=== PATIENT | male | born 1945 | race Caucasian/White ===

== ENCOUNTER 2018-02-02 16:33 | Emergency (ER) | payer MEDICARE, OTHER ==
[~2018-02-02] VITALS: Ht 175.3 cm; Wt 95.3 kg
[~2018-02-02 16:33] MED LIST: ALLOPURINOL100 MG PO; ALLOPURINOL300 MG PO; ATORVASTATIN CA20 MG PO; BUMETANIDE2 MG PO; BUPROPION XL300 MG PO; CLONAZEPAM0.25 MG PO; COLCRYS0.6 MG PO; LEVALBUTER1.25 MG/3 INH; PREDNISONE20 MG PO; PREDNISONE5 G1 PO; PROTONIX40 MG/ML PO; SINGULAIR10 MG PO; TRAZODONE HCL50 MG PO; ULTRAM 50MG50 MG PO; VENTOLIN HFA18 GM INH; VERAPAMIL ER240 M1 PO; VITAMIN D35000 UNIT PO; WARFARIN SODIUM5 MG PO
--- OUTSIDE RECORDS SUMMARY | 2018-02-02 16:35 | XMS REPORT | Clinical Summary ---
Author Author DAVID [facility] Address Unknown Phone Unavailable Care Team Providers Care Labor Crew Supervisor Name Role Phone PCP Unavailable Allergies No Known Allergies Current Medications Prescription Sig. Disp. Refills Start End Date Status Date atorvastatin (LIPITOR) 20 Take 20 mg by mouth Active MG tablet daily. digoxin (LANOXIN) 0.25 MG Take 250 mcg by mouth Active tablet daily. warfarin (COUMADIN) 5 MG Take 5 mg by mouth daily Active tablet Takes 7.5 mg -. allopurinol (ZYLOPRIM) Take 100 mg by mouth Active 100 MG tablet daily. bumetanide (BUMEX) 2 MG Take 2 mg by mouth 2 Active tablet (two) times daily. traZODone (DESYREL) 50 MG Take 50 mg by mouth Active tablet nightly. pantoprazole (PROTONIX) Take 40 mg by mouth Active 40 MG tablet daily. benzonatate (TESSALON) Take 100 mg by mouth 3 Active 100 MG capsule (three) times daily as needed for Cough. montelukast (SINGULAIR) Take 10 mg by mouth Active 10 mg tablet nightly. levothyroxine (SYNTHROID, Take 25 mcg by mouth Active LEVOTHROID) 25 MCG tablet Every morning on an empty stomach. magnesium gluconate Take 500 mg by mouth Active (MAGONATE) 27.5 mg (500 daily. mg) tablet cholecalciferol, vitamin Take 5,000 Units by mouth Active D3, 5,000 unit Tab daily. traMADol (ULTRAM) 50 mg Take 50 mg by mouth every Active tablet 6 (six) hours as needed for Pain. allopurinol (ZYLOPRIM) Take 3 tablets (300 mg 90 tablet 0 08/26/20 Active 100 MG tablet total) by mouth 2 (two) 16 times daily. Active Problems Problem Noted Date Type 2 diabetes mellitus with circulatory disorder ([facility]) 08/25/2016 Essential hypertension 08/25/2016 Hyperlipidemia LDL goal <100 08/25/2016 MARCUS (obstructive sleep apnea) 08/25/2016 Acquired hypothyroidism 08/25/2016 H/O: CVA (cerebrovascular accident) 09/20/2014 Acute blood loss anemia 09/16/2014 Non healing left heel 08/30/2014 Gout 08/06/2014 Atrial fibrillation ([facility]) 08/06/2014 Overview: With now a look to the nursing home with wound care, we'll resume COAC. 11/15 Best Damon MD Cerebral infarction ([facility]) 08/06/2014 Overview: UPDATED BY ICD10 SNOMED/IMO UPDATES PVD (peripheral vascular disease) ([facility]) 08/04/2014 Overview: His wounds are well demarcated and moving to heal. 11/15 Best Damon MD Social History Tobacco Use Types Packs/Day Years Used Date Former Smoker Smokeless Tobacco: Never Used Alcohol Use Drinks/Week oz/Week Comments Yes 14 Cans of 8.4 beer Sex Assigned at Date Recorded Not on file Last Filed Vital Signs Not on file Plan of Treatment Not on file Implants Implanted Type Area Sweet Potato Disintegrator Device Expiration Model / Identifier Date Serial / Lot Cath,Dura-Flow Dialysis 24cm - Catheter Right: ANGIO [employer] 2016 [id number] Dialysis Chest 015 / Implanted: Qty: 1 on 11/17/2014 by Cd Reactor Operator Head / Hang Tamayo MD [id number] Matrix,Tissue Regenerative Tissue Left: Foot [employer] THERAPEUTIC 2015 [id number] / Graftjacket 4x4cm - [id number] Graft/[employer]s [employer] / Implanted: Qty: 1 on 09/19/2014 by karan [id number] Pardeep Palencia DPM 10 Results Not on fileafter 02/01/2017
[2018-02-02] MEDS ORDERED: ONDANSETRON HCL INJ 2 MG/ML VIAL IV STA (16:51)
[2018-02-02] MEDS ORDERED: SODIUM CHLORIDE 0.9% 1000ML 1,000 ML IV STA (16:51)
[2018-02-02] MEDS ORDERED: MORPHINE SULFATE 4 MG/ML SYR IV STA (16:51)
[2018-02-02] MEDS ORDERED: CLINDAMYCIN 600MG/D5W 50ML 50 ML IV ONE (17:15)
[2018-02-02] MEDS ORDERED: DIGOXIN250 MCG (17:40)
[2018-02-02] MEDS ORDERED: ADVAIR 100-501 EACH (17:40)
[2018-02-02] MEDS ORDERED: METFORMIN HCL500 M1 (17:40)
[2018-02-02] MEDS ORDERED: GABAPENTIN300 MG PO (17:40)
[2018-02-02] MEDS ORDERED: TAMSULOSIN HCL0.4 MG (17:40)
[2018-02-02 18:38] LABS: INR 2.18; PROTHROMBIN TIME 22.8 seconds (11.9-14.5)
[2018-02-02] MEDS ORDERED: POTASSIUM CHLORIDE 20 MEQ TAB CR PO STA (18:59)
[2018-02-02] MEDS ORDERED: TRAMADOL HCL 50 MG TAB PO ONE (19:30)
== END 2018-02-02 19:55 | disposition home or self-care (01) ==
LOC: FSED 16:33
DX: R31.0 Gross hematuria (principal); L03.116 Cellulitis of left lower limb; I25.10 Atherosclerotic heart disease of native coronary artery without angina pectoris; K59.00 Constipation, unspecified; Z95.1 Presence of aortocoronary bypass graft; Z79.01 Long term (current) use of anticoagulants; I10 Essential (primary) hypertension; E11.9 Type 2 diabetes mellitus without complications; Z87.891 Personal history of nicotine dependence; I48.2 Chronic atrial fibrillation; K57.90 Diverticulosis of intestine, part unspecified, without perforation or abscess without bleeding; E87.6 Hypokalemia
CPT/HCPCS: 36415; 74176; 80053; 81003; 83880; 85025; 85610; 87040; 99284; J2270; J2405; J7030

== ENCOUNTER → 2018-02-10 | Outpatient (CLI) | payer MEDICARE, OTHER ==
[~2018-02-10] MED LIST changes: +ADVAIR 100-501 EACH; +DIGOXIN250 MCG; +GABAPENTIN300 MG PO; +METFORMIN HCL500 M1; +TAMSULOSIN HCL0.4 MG
--- NOTE | 2018-02-10 12:32 | Diagnostic Imaging Report ---
EXAM: MRI of the abdomen without contrast. INDICATION: Complex renal cysts on prior CT examination. Chronic kidney disease stage IV. COMPARISON: None. Correlation with CT chest dated 06/09/2016 and 05/01/2016. TECHNIQUE: Multiplanar and multisequence imaging was performed of the abdomen. T1 and T2-weighted images were obtained with and without contrast. T1-weighted in and [id number] , and diffusion-weighted imaging. Intravenous contrast was withheld due to chronic kidney disease. Discussion: Examination limited due to the lack of contrast. LOWER THORAX: Unremarkable. HEPATOBILIARY: No focal hepatic lesions. No biliary ductal dilation. GALLBLADDER: No radio-opaque stones or sludge. No wall thickening. SPLEEN: No splenomegaly. Lobulated contour. There are a few splenules. PANCREAS: No focal masses or ductal dilatation. ADRENALS: No adrenal nodules KIDNEYS/URETERS: No hydronephrosis. There are multiple complex, heterogeneous T2 and T1 hyperintense lesions scattered throughout the right kidney, the largest exophytic of the upper pole posteromedially on image 19 series 8; complexity is either related to high proteinaceous content and/or hemorrhage. There are also T1 hypointense T2 hyperintense lesions scattered throughout the right kidney, the largest partially exophytic of the anterior upper pole measuring 2.3 cm on image 36 series 3, consistent with simple cysts. There is a 4.2 x 4.1 cm complex lesion exophytic of the posterior upper pole of the left kidney, which demonstrate T2 hyperintense signal in its dependent portion, with T1 hyperintense foci layering along its nondependent aspect, as well as irregular nodular appearing component in its inferior aspect as seen on coronal image 10 series 7; this lesion may represent a hemorrhagic cyst, however, cannot be further characterized due to the lack of contrast. A cystic RCC could have this appearance. It was previously estimated at 2.8 cm in maximal dimension on prior CT examination of April 2016 and therefore has increased in size. A similar smaller lesion in the lateral upper pole of the left kidney demonstrate heterogeneous T1/T2 hypointense signal, with a 9 mm hypointense nodule, measuring 2.0 cm on image 36 series 3. There are smaller images and slightly T1 hyperintense T2 hyperintense lesions scattered throughout the left kidney, consistent with simple cysts, the largest in a parapelvic location in the lower pole measuring 2.8 cm on image 18 series 7. GI TRACT: No abnormal distention, wall thickening, or evidence of bowel obstruction. LYMPH NODES: A few mildly prominent retroperitoneal lymph nodes are not enlarged, the largest measuring less than 1.0 cm in short axis. VESSELS: No aneurysmal dilatation. PERITONEUM / RETROPERITONEUM: No free air or fluid. BONES: Degenerative changes of the imaged thoracolumbar spine. SOFT TISSUES: Unremarkable. Impression: 1. 2 complex lesions in the upper pole of the left kidney, the largest measuring 4.2 cm (increased in size from 2.8 cm on the prior examination of April 2016) which may represent hemorrhagic cysts, however, not completely characterized in this examination without contrast. Ultrasound of kidneys may be helpful for further characterization (exclude vascularized mural nodules). Signed by: Dr. Dorota Neal M.D. on 02/10/2018 12:29 PM
== END ==
LOC: MRI 08:56
PROVIDERS: ATTEND Internal Medicine
DX: N18.4 Chronic kidney disease, stage 4 (severe) (principal)
CPT/HCPCS: 74181

== ENCOUNTER 2019-02-16 05:36 | Emergency (ER) | payer MEDICARE, OTHER ==
[~2019-02-16] VITALS: Ht 172.7 cm; Wt 95.3 kg
--- OUTSIDE RECORDS SUMMARY | 2019-02-16 05:39 | XMS REPORT | Clinical Summary ---
Author Author DAVID [facility] Address Unknown Phone Unavailable Care Team Providers Care Clinical Director Name Role Phone Noemi Martinez PCP Unavailable Alida Jarquin Unavailable Allergies No Known Allergies Medications End Date Status Medication Sig Dispensed Refills Start Date Active atorvastatin (LIPITOR) 20 Take 20 mg by 0 MG tablet mouth daily. Active digoxin (LANOXIN) 0.25 MG Take 250 mcg 0 tablet by mouth daily. Active warfarin (COUMADIN) 5 MG Take 5 mg by 0 tablet mouth daily Takes 7.5 mg -. Active allopurinol (ZYLOPRIM) Take 100 mg 0 100 MG tablet by mouth daily. Active bumetanide (BUMEX) 2 MG Take 2 mg by 0 tablet mouth 2 (two) times daily. Active traZODone (DESYREL) 50 MG Take 50 mg by 0 tablet mouth nightly. Active pantoprazole (PROTONIX) Take 40 mg by 0 40 MG tablet mouth daily. Active benzonatate (TESSALON) Take 100 mg 0 100 MG capsule by mouth 3 (three) times daily as needed for Cough. Active montelukast (SINGULAIR) Take 10 mg by 0 10 mg tablet mouth nightly. Active levothyroxine (SYNTHROID, Take 25 mcg 0 LEVOTHROID) 25 MCG tablet by mouth Every morning on an empty stomach. Active magnesium gluconate Take 500 mg 0 (MAGONATE) 27.5 mg (500 by mouth mg) tablet daily. Active cholecalciferol, vitamin Take 5,000 0 D3, 5,000 unit Tab Units by mouth daily. Active traMADol (ULTRAM) 50 mg Take 50 mg by 0 tablet mouth every 6 (six) hours as needed for Pain. Active allopurinol (ZYLOPRIM) Take 3 90 tablet 0 100 MG tablet tablets (300 6 mg total) by mouth 2 (two) times daily. Active Problems Problem Noted Date Type 2 diabetes mellitus with circulatory disorder 08/25/2016 Essential hypertension 08/25/2016 Hyperlipidemia LDL goal <100 08/25/2016 MARCUS (obstructive sleep apnea) 08/25/2016 Acquired hypothyroidism 08/25/2016 H/O: CVA (cerebrovascular accident) 09/20/2014 Acute blood loss anemia 09/16/2014 Non healing left heel 08/30/2014 Gout 08/06/2014 Atrial fibrillation 08/06/2014 Overview: With now a look to the [facility] customer [facility] with wound care, we'll resume COAC. 11/15 Best Damon MD Cerebral infarction 08/06/2014 Overview: UPDATED BY ICD10 SNOMED/IMO UPDATES PVD (peripheral vascular disease) 08/04/2014 Overview: His wounds are well demarcated and moving to heal. 11/15 Best Damon MD Social History Date Tobacco Use Types Packs/Day Years Used Former Smoker Smokeless Tobacco: Never Used Alcohol Use Drinks/Week oz/Week Comments Yes 14 Cans of 8.4 beer Sex Assigned at Date Recorded Not on file Industry Job Start Date Occupation Not on file Not on file Not on file Travel End Travel History Travel Start No recent travel history available. Last Filed Vital Signs Not on file Plan of Treatment Not on file Implants Device Identifier Shelf Expiration Date Model / Serial / Lot Implanted Type Area Manufactur er 10/14/2016 [id number] / / [id number] Cath,Dura-Flow Dialysis 24cm - Catheter Right: Chest ANGIO [id number] Dialysis DYNAMICS Implanted: Qty: 1 on 11/17/2014 by Hang Quarles MD 02/12/2016 [id number] / / [id number] Matrix,Tissue Regenerative Tissue Left: Foot [employer] Graftjacket 4x4cm - [id number] Graft/Subs THERAPEUTI Implanted: Qty: 1 on 09/19/2014 by Pardeep Chao [employer] Results Not on fileafter 02/15/2018 Insurance Payer Benefit Subscriber ID Type Phone Address Plan / Group MEDICARE MEDICARE A xxxxxxxxxx Medicare B AETNA - MGD CARE AETNA OPEN xxxxxxxxxx HMO/POS ACCESS HMO NAP Advance Directives For more information, please contact: [address] [address] Date Inactivated Comments Code Status Date Activated 08/26/2016 7:56 PM Full Code 08/26/2016 9:16 AM This code status was determined by: Patient 08/08/2014 3:25 PM Full Code 08/04/2014 4:45 PM This code status was determined by: Patient 08/04/2014 4:45 PM Full Code 08/04/2014 12:18 PM This code status was determined by: Patient 06/07/2014 1:55 PM Full Code 06/07/2014 6:01 AM This code status was determined by: Patient
--- OUTSIDE RECORDS SUMMARY | 2019-02-16 05:39 | XMS REPORT | Clinical Summary ---
Author Author [facility] [employer] [employer] Address Unknown Phone Unavailable Care Team Providers Care Cannon Pinion Adjuster Name Role Phone Asked, No Pcp PCP Unavailable Allergies No Known Allergies Medications End Date Status Medication Sig Dispensed Refills Start Date Active atorvastatin (LIPITOR) 20 Take 20 mg by 0 MG tablet mouth daily. Default OP ins Active digOXIN (LANOXIN) 250 mcg Take 250 mcg 0 tablet by mouth daily. Active warfarin (COUMADIN) 5 MG Take 5 mg by 0 tablet mouth daily. Take 1 tablet (5mg) by mouth daily for 30 days. Active verapamil sustained Take 240 mg 0 release (CALAN-SR) 240 MG by mouth SR tablet nightly. Active losartan (COZAAR) 50 MG Take 50 mg by 0 tablet mouth daily. Active traMADol (ULTRAM) 50 mg Take 50 mg by 0 tablet mouth every 6 (six) hours as needed for moderate pain. Active allopurinol (ZYLOPRIM) Take 300 mg 0 300 MG tablet by mouth daily. Active BUMETanide (BUMEX) 2 MG Take 2 mg by 0 tablet mouth daily. Active traZODone (DESYREL) 50 MG Take 50 mg by 0 tablet mouth nightly. Active pantoprazole (PROTONIX) Take 40 mg by 0 40 MG EC tablet mouth daily. Active benzonatate (TESSALON) Take 100 mg 0 100 MG capsule by mouth 3 (three) times a day as needed for cough. Active montelukast (SINGULAIR) Take 10 mg by 0 10 mg tablet mouth nightly. Active levothyroxine (SYNTHROID, Take 25 mcg 0 LEVOXYL) 25 mcg tablet by mouth daily. Active metFORMIN (GLUCOPHAGE) Take 1,000 mg 0 1,000 mg tablet by mouth 2 (two) times a day with meals. Active fluticasone (FLONASE) 50 2 sprays by 0 mcg/actuation nasal spray Each Nare route daily. Active tamsulosin (FLOMAX) 0.4 Take 0.4 mg 0 mg capsule by mouth daily. Active gabapentin (NEURONTIN) Take 600 mg 0 600 mg tablet by mouth 3 (three) times a day. Active enoxaparin (LOVENOX) 100 Inject 100 mg 0 mg/mL syringe under the skin 2 (two) times a day. Active magnesium gluconate Take 500 mg 0 (MAGONATE) 500 mg tablet by mouth tablet daily. Active cholecalciferol, vitamin Take 50,000 0 D3, (VITAMIN D3) 2,000 Units by unit capsule capsule mouth daily. Active ferrous sulfate 325 (65 Take 325 mg 0 FE) MG tablet by mouth daily with breakfast. 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 10/28/2018 Encounters Care Team Description Date Type Specialty Leticia Francois MD 10/28/2018 Anesthesia Plastic Surgery Event Jayla Mills MD ECTROPION REPAIR RIGHT LOWER LID, LEFT UPPER AND LOWER LID, BILATERAL CANTHOPLASTY 10/28/2018 Surgery Plastic Surgery Jayla Mills MD Hemorrhage of eyelid; Ectropion of right lower eyelid; Ectropion of left lower eyelid 10/28/2018 Hospital Plastic Surgery Encounter after 02/15/2018 Social History Date Tobacco Use Types Packs/Day Years Used Former Smoker Cigarettes 1 25 Alcohol Use Drinks/Week oz/Week Comments Yes rare Sex Assigned at Date Recorded Not on file Industry Job Start Date Occupation Not on file Not on file Not on file Travel End Travel History Travel Start No recent travel history available. Last Filed Vital Signs Time Taken Vital Sign Reading 10/28/2018 5:34 PM POWER SYSTEM ELECTRICAL ENGINEER Blood Pressure 155/74 10/28/2018 5:34 PM POWER SYSTEM ELECTRICAL ENGINEER Pulse 79 10/28/2018 5:34 PM POWER SYSTEM ELECTRICAL ENGINEER Temperature 36.6 C (97.9 F) 10/28/2018 5:34 PM POWER SYSTEM ELECTRICAL ENGINEER Respiratory Rate 21 10/28/2018 5:34 PM POWER SYSTEM ELECTRICAL ENGINEER Oxygen Saturation 98% - Inhaled Oxygen - Concentration 10/28/2018 11:28 AM POWER SYSTEM ELECTRICAL ENGINEER Weight 99.3 kg (219 lb) 10/28/2018 11:28 AM POWER SYSTEM ELECTRICAL ENGINEER Height 175.3 cm (5' 9") 10/28/2018 11:28 AM POWER SYSTEM ELECTRICAL ENGINEER Body Mass Index 32.34 Plan of Treatment Not on file Procedures Comments Procedure Name Priority Date/Time Associated Diagnosis SURGICAL PATHOLOGY Routine 10/28/2018 REQUEST 4:54 PM POWER SYSTEM ELECTRICAL ENGINEER POC GLUCOSE Routine 10/28/2018 4:24 PM POWER SYSTEM ELECTRICAL ENGINEER DE AN ELECTIVE Routine 10/28/2018 ENDOTRACHEAL AIRWAY 2:52 PM POWER SYSTEM ELECTRICAL ENGINEER Procedure Note - Leti Cintron CRNA - 10/28/2018 2:52 PM POWER SYSTEM ELECTRICAL ENGINEER ANESTHESIA INTUBATION Date/Time: 10/28/2018 2:37 PM Performed by: Leti Cintron CRNA Authorized by: Dakota Ho MD Location: OR Urgency: Elective Difficult Airway: No Anesthesio logist: Dakota Ho MD Performed by: anesthesio logissujata Preoxygena edu with 100% O2: Yes C-spine Precaution s Maintained Throughout : Yes Mask Ventilatio n: Easy mask Final Airway Type: Endotrache al airway Final Endotrache al Airway: ETT and reinforced tube Cuffed: Yes Technique Used: Video laryngosco py Devices/Me thods Used in Placement: Intubatin g stylet Insertion Site: Oral Laryngosco pe Blade/Vide olaryngosc ope Blade Size: 3 ETT Size (mm): 6.0 Cuff at minimum occlusion pressure: Yes Measured from: Teeth ETT to Teeth (cm): 23 Placement Verified by: CO2 detection, direct visualizat ion and equal breath sounds Laryngosco pic view: Grade I - full view of glottis Rapid Sequence Induction (RSI): No Modified RSI: No Number of Attempts at Approach: 1 Intubatio n performed by dr ho REPAIR, ECTROPION 10/28/2018 Hemorrhage of eyelid 2:00 PM POWER SYSTEM ELECTRICAL ENGINEER Ectropion of right lower eyelid Ectropion of left lower eyelid Special Needs EST 1.5HR POC PANEL 4 Routine 10/28/2018 11:38 AM POWER SYSTEM ELECTRICAL ENGINEER after 02/15/2018 Results * Surgical pathology request (10/28/2018 4:54 PM POWER SYSTEM ELECTRICAL ENGINEER) [facility] DEPARTMENT OF PATHOLOGY AND GENOMIC MEDICINE Surgical See link below for PDF Lab [facility] DEPARTMENT pathology Report OF PATHOLOGY report AND GENOMIC MEDICINE Result status This is Final Report for [facility] DEPARTMENT [id number] OF PATHOLOGY AND GENOMIC MEDICINE Specimen Performing Organization Address City/State/Zipcode Phone Number [facility] DEPARTMENT OF [address] [place] [id number] PATHOLOGY AND GENOMIC MEDICINE * POC glucose (10/28/2018 4:24 PM POWER SYSTEM ELECTRICAL ENGINEER) Pathologist [facility] POC glucose 293 (H) 65 - 99 mg/dL [place] Comment: LUTHERAN TM Notified RN HOSPITAL Meter ID: [id number] Telecom Analyst: Clause Kevin Specimen Performing Organization Address City/State/Zipcode Phone Number [facility] [place] [address] PATHOLOGY [place] [address] HOSPITAL * POC panel 4 (10/28/2018 11:38 AM POWER SYSTEM ELECTRICAL ENGINEER) [facility] POC sodium 136 135 - 148 mmol/L [facility] POC potassium 4.1 3.5 - 5.0 mmol/L [facility] POC hematocrit 38 (L) 41 - 51 % [place] Comment: LUTHERAN Meter ID: [id number] HOSPITAL Telecom Analyst: Sadi Longoria POC glucose 286 (H) 65 - 99 mg/dL [facility] Specimen Performing Organization Address City/[facility] Phone Number [facility] [place] [address] PATHOLOGY [place] [address] HOSPITAL after 02/15/2018 Insurance Type Payer Benefit Subscriber ID Effective Phone Address Plan / Dates Group Medicare MEDICARE MEDICARE xxxxxxxxxxx 2012-P [place], PART A AND resent [place] B TPL TPL TPL-MED-DA xxxxxxxxxxxx 2017-P [place] resent Advance Directives Patient has advance care planning documents on file. For more information, gerald ag contact: [place] [address]
--- OUTSIDE RECORDS SUMMARY | 2019-02-16 05:40 | XMS REPORT ---
Author Author [facility] Address Unknown Phone Unavailable Care Team Providers Care Pararescue Manager Name Role Phone MAYDA SULLIVAN Unavailable Unavailable Payers Payer Name Policy Type Policy Number Effective Date Expiration Date Problems This patient has no known problems. Allergies, Adverse Reactions, Alerts Allergy Name Allergy Type Status Severity Reaction(s) Onset Date Inactive Date Treating Clinician Comments No Known Allergies DA Active U 2018-08-17 00:00:00 codeine DA Active MO 2014-04-26 00:00:00 Medications This patient has no known medications. Results Test Description Test Time Test Comments Text Results Atomic Results Result Comments INTERVERTEBRAL DISC 2018-08-18 16:27:00 RUN DATE: 08/18/18 [facility] - Lab PAGE 1 RUN TIME: 1627 Specimen Inquiry RUN USER: INTERFACE PATIENT: ARTURO YOO LOC: [facility] U #: [id number] AGE/SX: 73/M ROOM: [facility] RE08/16/18REG DR: Tone Velasquez MD : 49 BED: A DIS: 08/17/18 STATUS: DIS Lucian TLOC: SPEC #: [id number] RECD: 08/16/18 STATUS: SOUNicolas REQ #: [id number] JOSE: 08/16/18- [facility] DR: Tone Velasquez MD ENTERED: 08/16/18 SP TYPE: INT DISC OTHR DR: Noemi Martinez MD ORDERED: [place] [id number] [place] [address] Tone Velasquez MD [address] [place] [address] PROCEDURES: GROSS (08/18/18-1122) TISSUES: LUMBAR VERTEBRA, NOS - L3-4 ANDL4-5 DISC CLINICAL HISTORY COLLECTION DATE: 08/16/2018 L3-4 AND L4-5 SPINAL STENOSIS FINAL DIAGNOSIS Lumbar lamina and ligament, 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, laminectomy: TRABECULAR BONE WITH UNREMARKABLE MARROW ELEMENTS AND SMALL AREAS OF REACTIVE FIBROSIS FRAGMENTS OF CARTILAGE WITH DEGENERATIVE CHANGE FRAGMENTS OF UNREMARKABLE DENSE CONNECTIVE TISSUE COMPATIBLE WITH LIGAMENT NEGATIVE FOR MALIGNANCY RRB/sm D 12021, 22081 CONTINUED ON NEXT PAGE RUN DATE: 08/18/18 [facility] PAGE 2 RUN TIME: 1627 Specimen Inquiry RUN USER: INTERFACE SPEC #: [id number] PATIENT: ARTURO YOO #[id number] (Continued) MACROSCOPIC The specimen is received in formalin, labeled with the patient's name, and identified as "Lumbar lamina and ligament". The specimen consists of multiple fragments of bone and pink-white fibrous tissue. The specimen measures 6 x 3 x 1.3 cm in aggregate. Samples of the specimen are submitted for decalcification and followup microscopic evaluation in a single cassette. GROSS PERFORMED AT [facility] [address] [place] [address] [phone] [phone])[phone] MICROSCOPIC MICROSCOPIC PERFORMED AT [facility] All of the stains, including any controls performed, stain appropriately. [facility] [address] [place] [phone] [phone])[phone] PER[address] S[address] Diagnosis performed at: [facility], [place] [address] [place] [id number] Signed SIGNATURE ON FILE Melecio Lang 08/18/18 1627 END OF REPORT MRI ABDOMEN WO [place] [address] Patient Name: ARTURO YOO SR MR #: [id number] : 1945 Age/Sex: 72/M Req #: [id number] Adm Physician: Ordered by: MAYDA SULLIVAN MD Report #: [id number] Location: MRI Room/Bed: Procedure: [id number] MRI/MRI ABDOMEN WO Exam Date: Exam Time: REPORT STATUS: Signed EXAM: MRI of the abdomen without contrast. INDICATION: Complex renal cysts on prior CT examination. Chronic kidney disease stage IV. COMPARISON: None. Correlation with CT chest dated 06/09/2016 and 05/01/2016. TECHNIQUE: Multiplanar and multisequence imaging was performed of the abdomen. T1 and T2- weighted images were obtained with and without contrast. T1-weighted in and [id number]-[id number] , and diffusion-weighted imaging. Intravenous contrast was withheld due to chronic kidney disease. Discussion: Examination limited due to the lack of contrast. LOWER THORAX: Unremarkable. HEPATOBILIARY: No focal hepatic lesions. No biliary ductal dilation. GALLBLADDER: No radio-opaque stones or sludge. No wall thickening. SPLEEN: No splenomegaly. Lobulated contour. There are a few splenules. PANCREAS: No focal masses or ductal dilatation. ADRENALS: No adrenal nodules KIDNEYS/URETERS: No hydronephrosis. There are multiple complex, heterogeneous T2 and T1 hyperintense lesions scattered throughout the right kidney, the largest exophytic of the upper pole posteromedially on image 19 series 8; complexity is either related to high proteinaceous content and/or hemorrhage. There are also T1 hypointense T2 hyperintense lesions scattered throughout the right kidney, the largest partially exophytic of the anterior upper pole measuring 2.3 cm on image 36 series 3, consistent with simple cysts. There is a 4.2 x 4.1 cm complex lesion exophytic of the posterior upper pole of the left kidney, which demonstrate T2 hyperintense signal in its dependent portion, with T1 hyperintense foci layering along its nondependent aspect, as well as irregular nodular appearing component in its inferior aspect as seen on coronal image 10 series 7; this lesion may represent a hemorrhagic cyst, however, cannot be further characterized due to the lack of contrast. A cystic RCC could have this appearance. It was previously estimated at 2.8 cm in maximal dimension on prior CT examination of April 2016 and therefore has increased in size. A similar smaller lesion in the lateral upper pole of the left kidney demonstrate heterogeneous T1/T2 hypointense signal, with a 9 mm hy pointense nodule, measuring 2.0 cm on image 36 series 3. There are smaller images and slightly T1 hyperintense T2 hyperintense lesions scattered throughout the left kidney, consistent with simple cysts, the largest in a parapelvic location in the lower pole measuring 2.8 cm on image 18 series 7. GI TRACT: No abnormal distention, wall thickening, or evidence of bowel obstruction. LYMPH NODES: A few mildly prominent retroperitoneal lymph nodes are not enlarged, the largest measuring less than 1.0 cm in short axis. VESSELS: No aneurysmal dilatation. PERITONEUM / RETROPERITONEUM: No free air or fluid. BONES: Degenerative changes of the imaged thoracolumbar spine. SOFT TISSUES: Unremarkable. Impression: 1. 2 complex lesions in the upper pole of the left kidney, the largest measuring 4.2 cm (increased in size from 2.8 cm on the prior examination of April 2016) which may represent hemorrhagic cysts, however, not completely characterized in this examination without contrast. Ultrasound of kidneys may be helpful for further characterization (exclude vascularized mural nodules). Signed by: Dr. Dorota Copeland M.D. on 02/10/2018 12:29 PM Dictated By: NEETA COPELAND MD, MD 1229 Transcribed By: LUIS on 02/10/18 1229 COPY TO: MAYDA SULLIVAN MD
--- OUTSIDE RECORDS SUMMARY | 2019-02-16 05:40 | XMS REPORT | Continuity of Care Document ---
Author Author [facility] Interface Address Unknown Phone Unavailable Problems Problem Status Onset Date Classification Date Reported Comments Source Chronic myeloid leukemia, BCR/ABL-positive, not having achieved remission 12/11/2017 03/12/2018 [facility] [place] J18.9 - "PNEUMONIA, UNSPECIFIED ORGANIS" Active 05/26/2016 [facility] Anemia Active 04/28/2016 Problem 02/03/2018 [facility] Coumadin toxicity Active 04/28/2016 Problem 02/03/2018 [facility] Hypoxia Active 04/28/2016 Problem 02/03/2018 [facility] Pneumonia Active 04/28/2016 Problem 02/03/2018 [facility] Renal failure Active 04/28/2016 Problem 02/03/2018 [facility] Medications Medication Details Route Status Patient Instructions Ordering Provider Order Date Source Albuterol Sulfate (Ventolin Hfa) 18 Gm Hfa.aer.ad, 18 Gm Inhalation Every 4 Hours as needed for Shortness Of Breath Active 02/02/2018 [facility] Allopurinol 100 Mg Tablet Daily [facility] Allopurinol 300 Mg Tablet Daily Active [facility] Atorvastatin Calcium 20 Mg Tablet Today At 9:00PM Active [facility] Bumetanide 2 Mg Tablet Daily Active [facility] Bupropion Hcl (Bupropion Xl) 300 Mg Tab.er.24h Daily [facility] Cholecalciferol (Vitamin D3) (Vitamin D3) 5,000 Unit Capsule Daily [facility] Clonazepam 0.25 Mg Tab.rapdis Bedtime Active [facility] Colchicine (Colcrys) 0.6 Mg Tablet Use As Directed [facility] Digoxin 250 Mcg Tablet Daily Active [facility] Fluticasone/Salmeterol (Advair 100-50 Diskus) 1 Each Disk.w.dev Twice A Day Active [facility] Gabapentin 300 Mg Capsule Twice A Day Active [facility] Levalbuterol Hcl 1.25 Mg/3 Ml Vial.neb As Needed Active [facility] Metformin Hcl (Metformin Hcl Er) 500 Mg Tab.er.24h Twice A Day Active [facility] Montelukast Sodium (Singulair) 10 Mg Tablet Daily Active [facility] Pantoprazole Sod (Protonix) 40 Mg/Ml Susp Twice A Day Active [facility] Prednisone 20 Mg Tab Daily Active [facility] Prednisone Micronized (Prednisone) 5 Gm Powder Daily Active [facility] Tamsulosin Hcl 0.4 Mg Cap.er.24h Daily Active [facility] Tramadol Hcl (Ultram 50MG*) 50 Mg Tab Every 8 Hours as needed for Pain Active [facility] Trazodone Hcl 50 Mg Tablet Bedtime as needed for Insomnia Active [facility] Verapamil Hcl (Verapamil Er) 240 Mg Cap24h.pel Twice A Day Active [facility] Warfarin Sodium (Coumadin) 5 Mg Tablet Daily Active [facility] Allergies, Adverse Reactions, Alerts Substance Category Reaction Severity Reaction type Status Date Reported Comments Source Immunizations Immunization Date Given Site Status Last Updated Comments Source Results Order Name Results Value Reference Range Date Interpretation Comments Source Chest 2 views DX Chest 2 views DX EXAM: XR CHEST 2 VIEWS DATE: 08/02/2018 1:24 PM [facility] INDICATION: Pneumonia. Cough and congestion. COMPARISON: 12/31/2016 TECHNIQUE: PA and lateral chest radiographs FINDINGS: Mild right hilar and right infrahilar airspace opacities are present, best seen on the PA view. A stable calcified 6 mm granuloma is seen in the left lower lobe. No other lung parenchymal abnormalities are seen. A small right pleural effusion has developed with blunting of the right costophrenic angle. Cardiac silhouette remains borderline enlarged. Atherosclerotic calcifications are seen in the aortic arch. No acute bony abnormality is identified. The patient is status post right shoulder arthroplasty procedure. Surgical hardware prior fusion is seen in the inferior cervical spine. Diffuse idiopathic skeletal hyperostosis of the thoracic spine is stable. IMPRESSION: 1. Mild right hilar/infrahilar pneumonia. Follow-up chest x-ray is recommended in several weeks following treatment to ensure regression/resolution. 2. Stable calcified granuloma in the left lower lobe. 3. Small new right pleural effusion. 08/02/2018 - - Read by: Quentin Packer MD Dictated Date/time: 08/02/18 13:39 Electronically Signed by: Quentin Packer MD 08/02/18 13:[address] [facility] in Platelet poor plasma by Coagulation assay INR in Platelet poor plasma by Coagulation assay 2.18 02/02/2018 [facility] Prothrombin time (PT) in platelet poor plasma by coagulation assay Prothrombin time (PT) in platelet poor plasma by coagulation assay 22.8 11.9 - 14.5 02/02/2018 [facility] Abdomen w/wo IV contrast CT Abdomen w/wo IV contrast CT EXAM: CT ABDOMEN WITH AND WITHOUT CONTRAST DATE: 12/23/2017 8:46 AM CDT INDICATION: - D72.89 Other specified disorders of white blood cells ADDITIONAL INFORMATION: None. COMPARISON: Prior abdominal ultrasound of 12/04/2017. TECHNIQUE: Volumetric CT acquisition of the abdomen before and after intravenous contrast. Axial, coronal and sagittal reconstructions. Postcontrast phases: Arterial, venous, and delayed IV contrast: 50 cc of Visipaque 320 Oral contrast: Water. DLP: [id number] FINDINGS: Lines and tubes: None. Lower thorax: Mitral annular calcifications are present. Atherosclerotic calcifications are seen within both the left and right coronary arterial systems. The heart is mildly enlarged. A 6 mm calcified granuloma is seen within the left lower lobe. A noncalcified mildly enhancing slightly irregularly-shaped 1.6 x 1.9 x 1.2 cm nodule is seen within the right lower lobe abutting the right hemidiaphragm (image 22 series 8). No pleural or pericardial effusions are seen. A small fat-containing right posterior diaphragmatic hernia is present. Liver: Normal. Biliary tree: No intra- or extrahepatic biliary ductal dilation. Gallbladder: Normal. No CT evidence of gallstones. Pancreas: Normal. Spleen: Normal. Adrenals: Normal. Kidneys and ureters: Arising exophytically from the superior pole cortex of the left kidney, there is a 2.3 x 2.4 x 2.2 cm 32 Hounsfield unit in density nonenhancing smoothly marginated complex cyst. There is no CT correlate for the 7 mm hyperechoic nodular focus along the wall this lesion seen on the prior ultrasound exam. Most likely this represents a mildly hemorrhagic cyst with the hyperechoic focus on the prior ultrasound possibly representing some minimal blood products. Arising exophytically off of the posterior inferior cortex of the right kidney on image 89 of series 8 and image 43 of series 2, there is a 5 mm mildly hyperdense lesion, likely a small hemorrhagic cyst as well. Possible enhancement of this lesion is likely related to different slice thickness on pre and postcontrast imaging. This lesion should be followed. Multiple other simple fluid attenuation cyst are seen in both kidneys with the largest in the left kidney measuring 3.1 cm in maximal diameter and with the largest in the right kidney measuring 1.7 cm in maximal diameter. Other subcentimeter hypodensities in both kidneys are too small to characterize but likely represent small cysts as well. A 6 mm calculus is seen in a minor calyx of the left kidneys interpolar region with some associated upper pole caliectasis. No other calculi are seen bilaterally. Bilateral renal cortices are lobulated. No abnormalities of the included portions the ureters are seen. Gastrointestinal tract: The stomach is normal in appearance. Colonic diverticulosis of the included sigmoid and descending colon are present with no CT evidence of acute diverticulitis. Moderate amount of stool is seen in the included portions of the colon. No small bowel pathology is seen. Appendix: Normal Peritoneum and retroperitoneum: No ascites or free air. Lymph nodes: No abdominal lymphadenopathy is seen. Vasculature: Atherosclerotic calcifications are seen in the aortoiliac system, moderate in severity. Atherosclerotic calcifications are also seen in the bilateral renal arterial systems, within the celiac axis, and within the superior mesenteric and inferior mesenteric arteries. The inferior vena cava and portal venous system are normal in appearance. Bones: Multilevel spondylosis is seen in the included lumbar spine. Diffuse idiopathic skeletal hyperostosis of the thoracic spine is present. A nonaggressive appearing sclerotic 8 mm lesion is seen in the T11 vertebral body, most likely a benign bone island. Soft tissues/abdominal wall: Normal. No hernias, masses, or fluid collections are seen. IMPRESSION: 1. Mildly complex 2.4 cm cyst corresponding to prior sonographic abnormality in the right renal upper pole with no abnormal enhancing foci or mural nodules detected. This lesion is categorized as Bosniak 2. 2. A 5 mm complex cyst is seen arising off of the posterior cortex of the right kidney as above as well. Apparent mild enhancement is likely related to different slice thicknesses on pre and postcontrast imaging. This lesion is characterized as Bosniak 2F, and a follow-up CT in 6 months with and without contrast is recommended for surveillance. 3. Multiple other simple cysts in both kidneys. Some hypodensities in both kidneys are too small to characterize on this exam. 4. 6 mm calculus in a minor calyx of the left kidney with associated caliectasis. 5. 1.9 cm slightly irregularly-shaped enhancing nodule in the inferior aspect of the right lower lobe abutting the right hemidiaphragm. Pulmonary consultation is recommended. PET CT exam may be of benefit for further characterization. 6. Moderately advanced atherosclerotic vascular disease of the visualized arterial structures, including of the visualized coronary arterial system, as above. 7. Colonic diverticulosis with no CT evidence of acute diverticulitis. Findings were discussed with Sarah Esparza MA, by telephone on 12/23/2017 at 1005 hours. She will relay the message to Dr. Olivo. 12/23/2017 - - Read by: Quentin Packer MD Dictated Date/time: 12/23/17 09:34 Electronically Signed by: Quentin Packer MD 12/23/17 10:07 FINAL REPORT [facility] Abdomen complete US Abdomen complete US EXAM: US ABDOMEN COMPLETE DATE: 12/04/2017 8:51 AM CDT INDICATION: - C92.10 Chronic myeloid leukemia, BCR/ABL-positive, not having achieved remission. ADDITIONAL INFORMATION: None. COMPARISON: 05/02/2015. TECHNIQUE: Multiplanar grayscale and color Doppler ultrasound images of the abdomen. FINDINGS: Liver: Craniocaudal length: 19.9 cm. Enlarged. Echogenicity: Diffusely increased. Surface nodularity: None Mass (size and location): None. Portal vein: 13 mm with hepatopetal flow. Bile ducts: Common bile duct diameter: 5 mm. Normal. Intrahepatic ducts: Normal. Gallbladder: Normal. Gallstones: None. Gallbladder sludge: None. Gallbladder wall: 1.9 mm. Normal. Pericholecystic fluid: None. Sonographic Allison sign: Absent. Pancreas: No abnormalities of the visualized portions of the pancreas are demonstrated. Portions of the pancreas are obscured by overlying bowel gas. Spleen: Craniocaudal length: 9.9 cm. Normal. Mass or focal lesion (size and location): None. Right kidney: Size: 12.1 x 5.9 x 5.4 cm. Normal. Hydronephrosis: None. Echogenicity: Normal. Mass/Stone/Cyst (size and location): An anechoic avascular thin-walled simple 2.0 x 1.8 x 1.9 cyst is seen in the superior cortex of the right kidney, slightly increased in size. An anechoic avascular thin-walled simple cyst is seen arising off the mid cortex of the right kidney measuring 2.2 x 1.3 x 1.5 cm, increased in size. Left kidney: Size: 12.3 x 6.5 x 5.5 cm. Normal. Hydronephrosis: None. Echogenicity: Normal. Mass/Stone/Cyst (size and location): Within the mid left kidney, there is a 2.8 x 3.1 x 3.3 cm anechoic avascular thin-walled simple cyst, new from the prior exam. Within the superior pole of the left kidney, there is a 3.9 x 3.1 x 4.0 cm anechoic avascular thin-walled cyst with a hyperechoic nonshadowing 7 mm focus along its inferior wall. This cyst is new. Within the inferior pole of the left kidney, there is a peripelvic anechoic avascular thin-walled 2.8 x 2.2 x 2.7 cm simple cyst, minimally increased in size from the prior exam. Abdominal aorta and IVC: Visualized portions are normal. Ascites: None Pleural Effusions: None IMPRESSION: 1. Nonspecific hepatomegaly and increased liver echogenicity, findings most compatible with diffuse fatty infiltration (steatosis) of the liver. 2. No abnormalities of the spleen are seen. 3. Bilateral simple renal cysts, either increased in size or new from the prior exam as described above. 4. New mildly complex 4.0 cm cyst within the left kidney with a hyperechoic mural 7 mm nodular focus. Although likely a Bosniak 2 or Bosniak 2F cyst, a Bosniak 3 or 4 cyst is not excluded. CT scan of the abdomen with renal mass protocol is recommended for further evaluation 12/04/2017 - - Read by: Quentin Packer MD Dictated Date/time: 12/04/17 09:59 Electronically Signed by: Quentin Packer MD 12/04/17 10:[address] [facility] Chest 2 views DX Chest 2 views DX EXAM: XR CHEST 2 VIEWS DATE: 12/31/2016 9:45 AM CDT INDICATION: pneumonia COMPARISON: Chest radiograph dated 05/26/2016 TECHNIQUE: PA and lateral chest radiographs FINDINGS: Lungs are symmetrically expanded, although there are slightly diminished lung volumes. Stable prominent interstitial markings in the lower lung zones. This could represent areas of scarring and/or underlying interstitial lung disease. Calcified granuloma in the left lower lobe. The cardiomediastinal silhouette is upper normal to mildly enlarged in size. No acute osseous abnormality is identified. Stable postoperative changes in the right shoulder and lower cervical spine. IMPRESSION: No significant interval change from prior exam. 12/31/2016 - - Read by: Oscar Lugo MD Dictated Date/time: 12/31/16 10:00 Electronically Signed by: Oscar Lugo MD 12/31/16 10:03 FINAL REPORT [facility] Chest 2 views DX Chest 2 views DX EXAM: XR CHEST 2 VIEWS DATE: 05/26/2016 9:32 AM CDT INDICATION: J18.9 Pneumonia, unspecified organism COMPARISON: 05/07/2015 TECHNIQUE: PA and lateral chest radiographs FINDINGS: PA and lateral chest x-rays reveal interval resolution of minimal linear subsegmental atelectasis in the lateral aspect of the left lower lung on the PA view. There is increased prominence of the interstitial lung markings which is more prominent than seen on the prior exam. A new ill-defined ovoid focus of interstitial and airspace opacity is seen over the right infrahilar region measuring approximately 2.4 cm in maximal diameter on the PA view. A stable calcified 7 mL granuloma seen in the left lower lobe. There is posterior elevation of the left hemidiaphragm to a mild degree. No pleural pathology is seen. Cardiac silhouette is normal in size. No hilar or pulmonary vascular abnormalities are seen. Surgical hardware is seen in the lower cervical spine and in the right proximal humerus. IMPRESSION: 1. Interval increase in prominence in interstitial lung markings along with a new ill-defined opacity in the right infrahilar region. High-resolution chest CT is recommended for further evaluation and characterization. Differential diagnosis would include progression of chronic interstitial lung disease and/or scarring, chronic infectious process, or neoplastic etiology. 2. Interval resolution of linear subsegmental atelectasis in the left mid lung. 3. Stable calcified granuloma in the left lower lobe. 3. Stable postoperative changes in the cervical spine and right shoulder. 05/26/2016 - - Read by: Quentin Packer MD Dictated Date/time: 05/26/16 09:55 Electronically Signed by: Quentin Packer MD 05/26/16 09:59 FINAL REPORT [facility] Chest 2 views DX Chest 2 views DX EXAM: XR CHEST TWO VIEWS DATE: 05/07/2015 COMPARISON EXAMS: None. CLINICAL INDICATION: Painful respiration. TECHNIQUE: PA and Lateral views DISCUSSION: PA and lateral chest x-rays reveal minimal linear scarring versus subsegmental atelectasis in the lateral aspect of the left lower lung on the PA view. There is slight increased prominence of the interstitial lung markings. There is posterior elevation of the left hemidiaphragm to a mild degree. No pleural pathology is seen. Cardiac silhouette is normal in size. No hilar or pulmonary vascular abnormalities are seen. Surgical hardware is seen in the lower cervical spine and in the right proximal humerus. IMPRESSION: 1. Minimal linear scarring or subsegmental atelectasis in the left lower lung on the PA view only. 2. Slight increased prominence of the interstitial lung markings, nonspecific finding which can be associated with a variety of acute or chronic interstitial processes including interstitial lung disease and infections. Clinical correlation is advised. High-resolution chest CT may be performed for further evaluation of clinically warranted. 3. Postoperative changes in the cervical spine and right shoulder. 05/07/2015 - - Read by: Quentin Packer MD Dictated Date/time: 05/07/15 14:13 Electronically Signed by: Quentin Packer MD 05/07/15 14:16 FINAL REPORT [facility] Abdomen complete US Abdomen complete US EXAM: US ABDOMEN DATE: 05/02/2015 COMPARISON EXAMS: None. CLINICAL INDICATION: Right lower quadrant abdominal pain. DATA: None TECHNIQUE: Multiple transverse and longitudinal images through the abdomen were obtained sonographically with additional supplemental color flow imaging. Permanent images were recorded. DISCUSSION: The liver is mildly enlarged measuring 17.7 cm in length. No focal liver pathology or abnormal liver echogenicity are seen. No intra or extrahepatic biliary ductal dilatation is seen with the common bile duct measuring 4 mm in maximal diameter along its visualized course. The gallbladder is sonographically within normal limits with no wall thickening, pericholecystic fluid, gallstones, or sonographic Allison's sign. The spleen is normal in appearance measuring 10.1 cm in length. Both kidneys are of normal size and echogenicity with no hydronephrosis, masses, or calculi with the right kidney measuring 12.5 cm in length and with the left kidney measuring 12.6 cm in length. Bilateral anechoic thin-walled avascular simple cysts are seen in both kidneys. These include: 1.6 x 1.7 x 1.8 cm right upper pole, 1.8 x 1.0 x 1.5 cm right mid kidney, 1.4 x 1.1 x 1.4 cm left mid kidney, 2.3 x 1.9 x 2.0 cm left kidney inferior pole peripelvic. No abnormalities of the visualized portions of the abdominal aorta or inferior vena cava are demonstrated. Hepatopetal flow is seen in the main portal vein which measures 11 mm in diameter. Portions of the pancreatic head and tail are obscured by overlying bowel gas. No abnormalities of the visualized portions of the pancreas are seen. No ascites or pleural effusions are visualized. IMPRESSION: 1. Bilateral simple renal cysts. 2. Nonspecific mild hepatomegaly. 3. No abnormalities of the gallbladder or of the biliary tree are seen. 05/02/2015 - - Read by: Quentin Packer MD Dictated Date/time: 05/02/15 10:38 Electronically Signed by: Quentin Packer MD 05/02/15 10:41 FINAL REPORT [facility] Vital Signs Vital Sign Value Date Comments Source Encounters Location Location Details Encounter Type Encounter Number Reason For Visit Attending Provider ADM Date DC Date Status Source [facility] [place] [facility] [id number] Naomy Stephen 06/21/2014 06/22/2014 [facility] [place] [facility] - [place] [facility] [id number] Jewell Alonsos 05/02/2015 05/03/2015 [facility] - [place] [facility] [id number] Noemi Michelle 05/07/2015 05/08/2015 [facility] - [place] [facility] [id number] Savita Cruz 05/26/2016 05/27/2016 [facility] - [place] [facility] [id number] Savita Maríaandre 12/31/2016 01/01/2017 [facility] - [place] [facility] [id number] Alex Olivo 12/04/2017 12/05/2017 [facility] - [place] [facility] [id number] Alex Olivo 12/23/2017 12/24/2017 [facility] [place] [facility] [id number] TOMI CUETO DO 02/02/2018 02/02/2018 [facility] Procedures Procedure Code Date Perfomer Comments Source
--- OUTSIDE RECORDS SUMMARY | 2019-02-16 05:40 | XMS REPORT | Summary of Care ---
Author Author [facility] Outpatient Imaging [facility] Outpatient Imaging [facility] Address Unknown Phone Unavailable Encounter [facility] Encntr_alias(FIN) [id number] Date(s): 12/04/17 - 12/04/17 [facility] Outpatient Imaging [facility] [address], [address] [place], [place] [address] [phone] Encounter Diagnosis Chronic myeloid leukemia, BCR/ABL-positive, not having achieved remission (Final) - 12/10/17 Discharge Disposition: Home or Self Care Attending Physician: Alex Olivo MD Vital Signs No data available for this section Problem List No data available for this section Allergies, Adverse Reactions, Alerts No data available for this section Medications No data available for this section Results No data available for this section Immunizations No data available for this section Procedures No data available for this section Social History No data available for this section Assessment and Plan No data available for this section
--- OUTSIDE RECORDS SUMMARY | 2019-02-16 05:40 | XMS REPORT | Summary of Care ---
Author Author [facility] Outpatient Imaging [facility] Address Unknown Phone Unavailable Encounter [facility] Encntr_alialex(FIN) [id number] Date(s): 12/31/16 - 12/31/16 [facility] Outpatient Imaging [facility] [address] [facility], [address] [place] [phone] Discharge Disposition: Home or Self Care Attending Physician: Savita Cruz MD Vital Signs No data available for [...]
--- OUTSIDE RECORDS SUMMARY | 2019-02-16 05:40 | XMS REPORT | Summary of Care ---
Author Author [facility] Outpatient Imaging [facility] Outpatient Imaging [facility] Address Unknown Phone Unavailable Encounter [facility] Encntr_alialex(FIN) [id number] Date(s): 05/07/15 - 05/07/15 [facility] Outpatient Imaging [facility] [address] [address], [address] [phone] Discharge Disposition: Home Attending Physician: Noemi Martinez MD Vital Signs No data available for [...]
--- OUTSIDE RECORDS SUMMARY | 2019-02-16 05:40 | XMS REPORT | Summary of Care ---
Author Author [facility] Outpatient Imaging [facility] Outpatient [facility] Address Unknown Phone Unavailable Encounter HQ Encntr_alialex(FIN) [id number] Date(s): 05/26/16 - 05/26/16 [facility] Outpatient Imaging [facility] [address] [facility], [address] [place] [phone] Discharge Disposition: Home or Self Care Attending [...]
--- OUTSIDE RECORDS SUMMARY | 2019-02-16 05:40 | XMS REPORT | Summary of Care ---
Author Author [facility] Outpatient Imaging [facility] Outpatient Imaging [facility] Address Unknown Phone Unavailable Encounter HQ Encntr_alfredo(FIN) [id number] Date(s): 05/02/15 - 05/02/15 [facility] Outpatient Imaging [facility] [address] [facility], [address] [phone] Discharge Disposition: Home Attending Physician: Jewell Corrales MD Vital Signs No data available for [...]
--- OUTSIDE RECORDS SUMMARY | 2019-02-16 05:40 | XMS REPORT | Summary of Care ---
Author Author [facility] Outpatient Imaging [facility] Outpatient [facility] Address Unknown Phone Unavailable Encounter HQ Encntr_alias(FIN) [id number] Date(s): 12/23/17 - 12/23/17 [facility] Outpatient Imaging [facility] [address] [facility], [address] [place], [place] [address] [phone] Discharge Disposition: Home or Self Care Attending [...]
--- OUTSIDE RECORDS SUMMARY | 2019-02-16 05:40 | XMS REPORT | Summary of Care ---
Author Organization Unknown Address Unknown Phone Unavailable Encounter HQ Encntr_alias([facility]) [id number] Date(s): 06/21/14 - 06/21/14 [facility] Outpatient Imaging - [address] [address] [place] Discharge Disposition: Home Physician Attending: Naomy Mitchell MD Reason for Visit 379.91 - PAIN IN OR AROU Problem List No data available for this section Allergies, Adverse Reactions, Alerts No data available for this section Medications No data available for this section Medications Administered During Your Visit No data available for this section Immunizations No data available for this section
[2019-02-16] MEDS ORDERED: LIDOCAINE HCL 2% LOCAL 20 ML VIAL ONE (06:05)
[2019-02-16] MEDS ORDERED: CEFAZOLIN SOD 500 MG VIAL IM STA (06:36)
[2019-02-16] MEDS ORDERED: TRAMADOL HCL 50 MG TAB PO ONE (06:45)
[2019-02-16] MEDS ORDERED: TETANUS/DIPHTHERIA TOX ADULT 0.5 ML SYR IM ONE (06:45)
[2019-02-16] MEDS ORDERED: CEFAZOLIN SOD 1 GM VIAL IM NR (06:45)
[2019-02-16] MEDS ORDERED: CEFAZOLIN SOD 1 GM VIAL ONE (07:00)
[2019-02-16] MEDS ORDERED: TRAMADOL HCL 50 MG TAB ONE (07:00)
[2019-02-16] MEDS ORDERED: TETANUS/DIPHTHERIA TOX ADULT 0.5 ML SYR ONE (07:01)
--- NOTE | 2019-02-16 07:32 | Diagnostic Imaging Report ---
Exam: Left foot 2 views History: Trauma, pain to fourth and fifth digits. Comparison: None. Findings: Acute, displaced and angulated fracture of the shaft of the fifth proximal phalanx.. Complete dislocation of the fourth proximal interphalangeal joint. It is difficult to ascertain whether this is dorsal or plantar given superimposition of digits on the lateral radiograph. No additional acute osseous abnormalities. Scattered foci of degenerative arthrosis most notably at the first interphalangeal joint. Degenerative plantar and posterior calcaneal spur. Atherosclerotic vascular calcifications. Impression: Acute, displaced and angulated fracture of the fifth proximal phalanx with concomitant dislocation of the fourth proximal interphalangeal joint. Signed by: Dr. Martin Gomez M.D. on 02/16/2019 7:28 AM
--- NOTE | 2019-02-16 07:46 | Diagnostic Imaging Report ---
Exam: Left foot 3 views History: Trauma to fourth and fifth digits Comparison: Earlier 02/16/2019 Findings: See impression Impression: Redemonstration of acute, displaced, dorsally angulated fracture of the fifth proximal phalanx and concomitant dorsal dislocation of the fourth proximal interphalangeal joint with overlying bandage material. No significant interval change relative to the study from 30 minutes prior. Signed by: Dr. Martin Gomez M.D. on 02/16/2019 7:43 AM
== END 2019-02-16 08:01 | disposition home or self-care (01) ==
LOC: FSED 05:36
DX: S93.115A Dislocation of interphalangeal joint of left lesser toe(s), initial encounter (principal); S92.512B Displaced fracture of proximal phalanx of left lesser toe(s), initial encounter for open fracture; S91.312A Laceration without foreign body, left foot, initial encounter; W19.XXXA Unspecified fall, initial encounter; E11.40 Type 2 diabetes mellitus with diabetic neuropathy, unspecified
CPT/HCPCS: 12002; 28660; 73630; 90471; 90714; 99284; J0690; J2001